=== PATIENT | female | born 1945 | race Two or more races ===

== ENCOUNTER → 2018-10-02 | Emergency (ER) | payer OTHER ==
[~2018-10-02] VITALS: Ht 167.6 cm; Wt 83.9 kg
[~2018-10-02] MED LIST: AVAPRO75 MG PO; CEFUROXIME500 MG PO; KETO10TA2 PO; METOPROLOL SUCC25 MG
== END | disposition home or self-care (01) ==
LOC: ER 22:10
DX: N39.0 Urinary tract infection, site not specified (principal); R10.31 Right lower quadrant pain

== ENCOUNTER 2018-10-07 14:29 | Emergency (ER) | payer OTHER ==
[~2018-10-07] VITALS: Ht 165.1 cm; Wt 86.2 kg
[~2018-10-07 14:29] MED LIST changes: -AVAPRO75 MG PO
[2018-10-07] MEDS ORDERED: AVAPRO75 MG PO (14:56)
== END 2018-10-07 18:09 | disposition home or self-care (01) ==
LOC: ER 14:29
DX: B02.8 Zoster with other complications (principal)

== ENCOUNTER 2019-07-26 18:35 | Emergency (ER) | payer OTHER ==
[~2019-07-26] VITALS: Ht 170.2 cm; Wt 90.7 kg
[~2019-07-26 18:35] MED LIST changes: +AVAPRO75 MG PO
== END 2019-07-26 20:30 | disposition home or self-care (01) ==
LOC: ER 18:35
DX: S90.02XA Contusion of left ankle, initial encounter (principal); W18.39XA Other fall on same level, initial encounter; Y93.89 Activity, other specified; Y92.520 Airport as the place of occurrence of the external cause; Y99.8 Other external cause status